=== PATIENT | male | born 1995 | race Caucasian/White ===

== ENCOUNTER 2022-03-21 05:53 | Day surgery (SDC) | payer OTHER ==
[~2022-03-21] VITALS: Ht 175.3 cm; Wt 86.1 kg
[2022-03-21 06:07] VITALS: BP 130/81; TEMP 97.4
[2022-03-21 07:30] VITALS: BP 130/76; PULSE 16; TEMP 97.6
--- NOTE | 2022-03-21 07:30 | NUR ---
The patient arrived back to [facility] from endoscopy suite at this time. The patient appears alert and oriented and ambulated from the cart to the recliner in his room with the stand by assistance of one nurse. Post procedure vital signs were started at this time. The patient denies wanting anything to eat or drink at this time. Fresh warm blanket provided. Call light is within reach. Denies any further needs.
[2022-03-21 07:45] VITALS: BP 112/64; PULSE 54
--- NOTE | 2022-03-21 07:45 | NUR ---
Dr. Mcneal has been in to discuss the findings of the procedure with the patient. He now agrees to try some orange juice and a muffin. Vital signs appear stable. Call light is within reach.
[2022-03-21 08:00] VITALS: BP 113/75; PULSE 57
--- NOTE | 2022-03-21 08:00 | NUR ---
Discharge instructions were reviewed with the patient at this time. He verbalized understanding and have no questions for the nurse at this time. The patient's IV to his right anecubital was remvoed and a pressure dressing was applied to the site. The patient was instructed to get dressed and notify the staff when his ride arrives.
--- NOTE | 2022-03-21 08:20 | NUR ---
The patient was escorted out via wheelchair to a private vehicle by NICHOLE Kay. The patie's friend is present to drive him home. The patient's belongings and discharge paperwork were sent with him.
== END 2022-03-21 08:20 | disposition home or self-care (01) ==
LOC: SDCO 05:53
DX: K29.50 Unspecified chronic gastritis without bleeding (principal)
CPT/HCPCS: J2704; J3010; J7120